=== PATIENT | female | born 1935 | race Caucasian/White ===

== ENCOUNTER 2016-05-08 10:38 | Emergency (ER) | payer MEDICARE, OTHER ==
[~2016-05-08] VITALS: Ht 162.6 cm; Wt 64.0 kg
[~2016-05-08 10:38] MED LIST: ALFALFA PO; ASCO500 PO; ASPI325T PO; CALC500 PO; ESTR2TAB PO; MAXZ PO; SYNT112T PO
[2016-05-08 10:40] VITALS: BP 157/71; PULSE 87; RESP 20; TEMP 97.7; O2SAT 95
[2016-05-08 10:52] VITALS: O2SAT 100
--- NOTE | 2016-05-08 10:53 | PD ---
HPI Chief Complaint: Respiratory Distress Time Seen by Provider: 10:53 Travel History International Travel<30 days: No Contact w/Intl Traveler<30days: No Traveled to known affect area: No History of Present Illness HPI 80-year-old female came to the emergency room sent by her primary care since she called the primary care this morning to say that she was coughing. He did not see her but asked to go to the emergency room to get a chest x-ray to see if there is pneumonia. Patient says that she has been coughing for past 3 days. She is not bringing out any sputum. There is no fever or chills. No history of chest pain. Her vital signs were stable except for mild hypoxia. She does not have history of congestive heart failure. Does not complain of any shortness of breath. She is wanted to get the chest x-ray and go home. PFSH Past Medical History Narrative Medical List of her past medical, surgical, social and family history is reviewed from the nursing note. Blood Disorders: No Cancer: No Cardiovascular Problems: No Chemotherapy: No Endocrine: Yes GERD: Yes Genitourinary: No Hiatal Hernia: Yes Immune Disorder: No Musculoskeletal: No Neurologic: No Psychiatric: No Respiratory: No Radiation Therapy: No Thyroid Disease: Yes Menopausal: Yes Past Surgical History Abdominal Surgery: Yes (JASE,) AICD: No Cardiac Surgery: No Ear Surgery: No Endocrine Surgery: No Eye Surgery: No Genitourinary Surgery: Yes (BLADDER TUCK) Gynecologic Surgery: Yes (JASE) Hysterectomy: Yes Joint Replacement: No Oral Surgery: Yes (T&A) Pacemaker: No Thoracic Surgery: No Tonsillectomy: Yes Other Surgery: Yes (RECTAL SEAL, BREAST BX, BENIGH) Social History Alcohol Use: No Tobacco Use: No Substance Use: No Allergies-Medications (Allergen,Severity, Reaction): Coded Allergies: Codeine (Verified Allergy, Severe, 05/08/16) Darvon (Verified Allergy, Severe, 05/08/16) Erythromycin (Verified Allergy, Severe, 05/08/16) Premarin (Verified Allergy, Severe, 05/08/16) Sulfa (Verified Allergy, Severe, 05/08/16) Comments List of her allergies reviewed from the nursing note. Reported Meds & Prescriptions Reported Meds & Active Scripts Active Prednisone 20 Mg Tab 20 Mg PO BID 5 Days Ventolin Hfa 18 GM Inh (Albuterol Sulfate) 90 Mcg/Act Aer 2 Puff INH Q4-6H PRN Reported Estrace (Estradiol) 2 Mg Tab 2 Mg PO DAILY Calcium Carbonate 500 Mg Wafr 500 Mg CHEW DAILY 500 mg calcium carbonate (200 mg elemental calcium) Vitamin C (Ascorbic Acid) 500 Mg Chew 500 Mg CHEW BID Synthroid (Levothyroxine Sodium) 112 Mcg Tab 112 Mcg PO DAILY Maxzide (Triamterene/HCTZ) 75-50 Mg Tab 1 Tab PO DAILY Narrative Medication Rest of her home medications reviewed from the nursing note. Review of Systems Except as stated in HPI: all other systems reviewed are Neg Physical Exam Narrative GENERAL: Awake, alert, elderly, anxious SKIN: Warm and dry. HEAD: Atraumatic. Normocephalic. EYES: Pupils equal and round. No scleral icterus. No injection or drainage. ENT: No nasal bleeding or discharge. Mucous membranes pink and moist. NECK: Trachea midline. No JVD. CARDIOVASCULAR: Regular rate and rhythm. No murmur appreciated. RESPIRATORY: No accessory muscle use. Decreased air entry with mild end expiratory wheeze GASTROINTESTINAL: Abdomen soft, non-tender, nondistended. Hepatic and splenic margins not palpable. MUSCULOSKELETAL: No obvious deformities. No clubbing. No cyanosis. No edema. NEUROLOGICAL: Awake and alert. No obvious cranial nerve deficits. Motor grossly within normal limits. Normal speech. PSYCHIATRIC: Appropriate mood and affect; insight and judgment normal. Data Data Last Documented VS Vital Signs Date Time Temp Pulse Resp B/P Pulse Ox O2 Delivery O2 Flow Rate FiO2 05/08/16 12:00 74 20 143/65 96 Room Air 05/08/16 10:40 97.7 Orders Electrocardiogram (05/08/16 ) Complete Blood Count With Diff (05/08/16 11:16) Basic Metabolic Panel (Bmp) (05/08/16 11:16) B-Type Natriuretic Peptide (05/08/16 11:16) Prothrombin Time / Inr (Pt) (05/08/16 11:16) Troponin I (05/08/16 11:16) Blood Culture (05/08/16 11:16) Iv Access Insert/Monitor (05/08/16 11:16) Ecg Monitoring (05/08/16 11:16) Oximetry (05/08/16 11:16) Oxygen Administration (05/08/16 11:16) Chest, Single Ap (05/08/16 11:16) Sodium Chloride 0.9% Flush (Ns Flush) (05/08/16 11:30) Albuterol Neb (Albuterol Neb) (05/08/16 11:30) Albuterol Neb (Albuterol Neb) (05/08/16 13:30) Methylprednisolone So Succ Inj (Solumedr (05/08/16 13:30) Labs Laboratory Tests Test 05/08/16 11:30 White Blood Count 10.0 TH/MM3 Red Blood Count 4.20 MIL/MM3 Hemoglobin 12.6 GM/DL Hematocrit 36.5 % Mean Corpuscular Volume 87.1 FL Mean Corpuscular Hemoglobin 30.0 PG Mean Corpuscular Hemoglobin 34.5 % Concent Red Cell Distribution Width 13.3 % Platelet Count 336 TH/MM3 Mean Platelet Volume 7.8 FL Neutrophils (%) (Auto) 77.1 % Lymphocytes (%) (Auto) 13.7 % Monocytes (%) (Auto) 7.1 % Eosinophils (%) (Auto) 1.0 % Basophils (%) (Auto) 1.1 % Neutrophils # (Auto) 7.7 TH/MM3 Lymphocytes # (Auto) 1.4 TH/MM3 Monocytes # (Auto) 0.7 TH/MM3 Eosinophils # (Auto) 0.1 TH/MM3 Basophils # (Auto) 0.1 TH/MM3 CBC Comment DIFF FINAL Differential Comment Prothrombin Time 10.1 SEC Prothromb Time International 0.9 RATIO Ratio Sodium Level 138 MEQ/L Potassium Level 3.6 MEQ/L Chloride Level 99 MEQ/L Carbon Dioxide Level 29.0 MEQ/L Anion Gap 10 MEQ/L Blood Urea Nitrogen 20 MG/DL Creatinine 1.17 MG/DL Estimat Glomerular Filtration 45 ML/MIN Rate Random Glucose 104 MG/DL Calcium Level 8.9 MG/DL Troponin I LESS THAN 0.02 NG/ML B-Type Natriuretic Peptide 88 PG/ML MDM Medical Decision Making Medical Screen Exam Complete: Yes Emergency Medical Condition: Yes Medical Record Reviewed: Yes Interpretation(s) Twelve-lead EKG was reviewed by me. Normal sinus rhythm, left axis deviation, nonspecific ST-T wave changes. Heart rate of 74 bpm. Differential Diagnosis COPD exacerbation, pneumonia, CHF Narrative Course 1:26 PM patient got 2 breathing treatments and I went and reassessed her she says she is feeling little better. Blood test results of back and within normal limits. She has some renal insufficiency. Chest x-rays within normal limit. Gave her a bolus of Solu-Medrol and patient will be discharged home. Procedures EKG Prior to Arrival: No Diagnosis Primary Impression: Shortness of breath Additional Impression: Reactive airway disease Qualified Code: J45.909 - Reactive airway disease, unspecified asthma severity , uncomplicated Referrals: Primary Care Physician 1 day Additional Instructions: Please go to see her primary care tomorrow. Take medication as per the prescription direction. Return to the ER if the condition worsens or any other new concerns. Med/Other Pt SpecificInfo: Prescription(s) given Scripts Prednisone 20 Mg Tab20 Mg PO BID 5 Days Ref 0 Prov:Yesica Ferraro MD 05/08/16 Albuterol 18 GM Inh (Ventolin Hfa 18 GM Inh)90 Mcg/Act Aer2 Puff INH Q4-6H PRN ( SHORTNESS OF BREATH) #1 INHALER Ref 0 Prov:Yesica Ferraro MD 05/08/16 Disposition: 01 DISCHARGE HOME Condition: Stable Yesica Ferraro MD May 08, 2016 10:53 Yesica Ferraro MD May 08, 2016 10:53
[2016-05-08 10:55] VITALS: BP 167/74; PULSE 76; RESP 15; O2SAT 97
[2016-05-08] MEDS ORDERED: VITA500C9 CHEW (11:01)
[2016-05-08] MEDS ORDERED: MAXZ PO (11:01)
[2016-05-08] MEDS ORDERED: ESTR2TAB4 PO (11:01)
[2016-05-08] MEDS ORDERED: CALC1WAF CHEW (11:01)
[2016-05-08] MEDS ORDERED: SYNT112T PO (11:01)
[2016-05-08] MEDS ORDERED: SODIUM CHLORIDE 0.9% FLUSH 5 ML FLUSH IVF PRN (11:30)
[2016-05-08 11:47] LABS: AUTOMATED NEUTROPHIL # 7.7 TH/MM3 (1.8-7.7); BASOPHIL # 0.1 TH/MM3 (0-0.2); BASOPHIL % 1.1 % (0.0-2.0); EOSINOPHIL # 0.1 TH/MM3 (0-0.4); HEMATOCRIT 36.5 % (35.0-46.0); HEMO FLAGS DIFF FINAL; LYMPH % 13.7 % (9.0-44.0); LYMPHOCYTE # 1.4 TH/MM3 (1.0-4.8); MEAN CELL VOLUME 87.1 FL (80.0-100.0); MEAN CORPUSCULAR HGB CONC 34.5 % (32.0-36.0); MONO % 7.1 % (0.0-8.0); NEUT % 77.1 % (16.0-70.0); PLATELET COUNT 336 TH/MM3 (150-450); RED CELL DISTRIBUTION WIDTH 13.3 % (11.6-17.2)
[2016-05-08 11:54] LABS: INTERNATIONAL NORMALIZED RATIO 0.9 RATIO; PROTHROMBIN TIME - PATIENT 10.1 SEC (9.8-11.6)
[2016-05-08] MEDS: RESP: ALBUTEROL 2.5 MG/3 ML NEB (SCH) INH (11:55)
[2016-05-08 12:00] VITALS: BP 143/65; PULSE 74; RESP 20; O2SAT 96
[2016-05-08 12:04] LABS: ANION GAP 10 MEQ/L (5-15); BLOOD UREA NITROGEN 20 MG/DL (7-18); CHLORIDE 99 MEQ/L (98-107); GLOMERULAR FILTRATION RATE 45 ML/MIN (>89); POTASSIUM 3.6 MEQ/L (3.5-5.1); SODIUM (NA) 138 MEQ/L (136-145)
--- NOTE | 2016-05-08 13:13 | RADRPT ---
EXAM DATE/TIME: 05/08/2016 11:51 [facility] COMPARISON: CHEST SINGLE AP, August 11, 2011, 10:50. INDICATIONS : Short of breath. MEDICAL HISTORY : None. SURGICAL HISTORY : None. ENCOUNTER: Initial ACUITY: 2 days PAIN SCORE: 0/10 LOCATION: Bilateral chest FINDINGS: Portable AP view of the chest demonstrates a normal-sized cardiac silhouette. No effusion, consolidat ion, or pneumothorax is visualized. The bones and soft tissues demonstrate no acute abnormality. CONCLUSION: No acute cardiopulmonary abnormality is identified. Jt Toribio MD on May 08, 2016 at 13:12 Board Certified Radiologist. This report was verified electronically.
[2016-05-08] MEDS ORDERED: VENTAER INH (13:21)
[2016-05-08] MEDS ORDERED: PRED20 PO (13:21)
[2016-05-08] MEDS ORDERED: RESP: ALBUTEROL 2.5 MG/3 ML NEB (SCH) NEB ONE (13:30)
[2016-05-08] MEDS ORDERED: methylPREDNISolone SOD SUCC 125 MG/2 ML VIAL IV PUSH ONE (13:30)
--- NOTE | 2016-05-09 20:20 | EKG ---
Date Performed: 05/08/2016 Time Performed: 10:57:29 PTAGE: 80 years EKG: Sinus rhythm LEFT ANTERIOR FASCICULAR BLOCK POOR R WAVE PROGRESSION MINIMAL ST DEPRESSION ABNORMAL ECG PREVIOUS TRACING : 08/11/2011 12.00 Compared to prior tracing no significant change DOCTOR: George Goins Interpretating Date/Time 05/09/2016 20:19:14
== END 2016-05-08 15:16 | disposition home or self-care (01) ==
LOC: NEPC 10:38
DX: J45.909 Unspecified asthma, uncomplicated (principal); R09.02 Hypoxemia; R94.31 Abnormal electrocardiogram [ECG] [EKG]
CPT/HCPCS: 71010; 80048; 83880; 84484; 85025; 85610; 87040; 93005; 94640; 94664; 96374; 99284; J2930; J7613